=== PATIENT | male | born 1960 | race Caucasian/White ===

== ENCOUNTER 2021-09-27 23:08 | Inpatient (IN) ==
[2021-09-28] MEDS ORDERED: Iopamidol - 370 500 ML MLS IVP ONE ×2 (01:32→03:11)
[2021-09-28] MEDS ORDERED: *HR* HYDROmorphone (PF) 1 MG/ML SYRINGE IVP ONE (01:33)
[2021-09-28] MEDS ORDERED: Ipratropium/Albuterol Neb 3 ML IH ONE (01:34)
[2021-09-28] MEDS ORDERED: Ondansetron 4 MG/2 ML VIAL IVP ONE (01:34)
[2021-09-28 02:16] LABS: Bacteria,Urine Few per hpf (None-Few); Bilirubin,Urine Negative (Negative); Blood,Urine Large (Negative); Clarity,Urine Clear (Clear); Color,Urine Light-Orange (Yellow); Glucose,Urine (UA) Normal (Normal); Ketones,Urine Negative (Negative); Leukocyte Esterase,Urine Large (Negative); Mucus,Urine Few per lpf (None-Few); Nitrite,Urine Negative (Negative); Protein,Urine 50 mg/dL (Neg-Trace); Specific Gravity,Urine 1.022 (1.010-1.025); Squamous Epithelial Cell,Urine Few per hpf (None-Few); Urobilinogen,Urine Normal (Normal); WBC,Urine 50-100 per hpf (0-3)
[2021-09-28 02:28] LABS: Basophils % 0.1 %; Eosinophils % 0.2 %; Hematocrit 45.1 % (37.5-50.1); Hemoglobin 15.3 g/dL (12.9-16.9); Immature Granulocytes % 0.2 % (0-4); Lymphocytes % 9.9 %; Mean Corpuscular HGB Conc 33.9 g/dL (31.6-35.5); Mean Corpuscular Hemoglobin 31.5 pg (28.0-33.3); Mean Corpuscular Volume 92.8 fL (83.0-100.0); Mean Platelet Volume 10.8 fL (9.4-12.4); Monocytes # 0.7 K/mcL (0.0-1.3); Monocytes % 6.7 %; Neutrophils # 8.4 K/mcL (1.6-8.9); Platelet Count 119 K/mcL (140-400); Red Blood Count 4.86 M/mcL (4.19-5.50); Red Cell Distribution Width 14.7 % (11.5-14.5); Segmented Neutrophils % 82.9 %; White Blood Count 10.1 K/mcL (4.3-11.1)
[2021-09-28 02:36] LABS: INR 1.1; Prothrombin Time 12.1 Seconds (9.4-12.1)
[2021-09-28 02:39] LABS: Activated Partial Thrombo Time 31.1 Seconds (26.0-36.0)
[2021-09-28] MEDS ORDERED: Morphine Sulfate 2 MG/ML SYRINGE IVP ONE (02:41)
[2021-09-28 02:58] LABS: Albumin 4.4 g/dL (3.5-5.7); Albumin/Globulin Ratio 1.8 (1.1-2.2); Bilirubin,Direct 0.1 mg/dL (0.0-0.2); Bilirubin,Indirect 0.5 mg/dL (0.0-1.0); Bilirubin,Total 0.6 mg/dL (0.3-1.0); Calcium 8.7 mg/dL (8.6-10.3); Globulin 2.4 g/dL (2.4-3.5); Total Protein 6.8 g/dL (6.4-8.9); Troponin I 0.23 ng/mL (< 0.04)
[2021-09-28] MEDS ORDERED: levoFLOXacin 750 MG/150 ML 750 MG/150 ML BAG IVPB ONE (04:17)
[2021-09-28] MEDS ORDERED: *HR* OxyCODONE Immed Rel 5 MG TABLET PO ONE (04:24)
[2021-09-28] MEDS: DilTIAZem 50 MG/50 ML IV.SOLN IVC SCH ×4 (04:57→16:56)
[2021-09-28] MEDS ORDERED: Melatonin 3 MG TABLET PO PRN (05:30)
[2021-09-28] MEDS ORDERED: Naloxone 0.4 MG/ML INJ IVP PRN (05:30)
[2021-09-28] MEDS ORDERED: Ondansetron ODT 4 MG TAB.RAPDIS SL PRN (05:30)
[2021-09-28] MEDS ORDERED: *HR* Promethazine 25 MG/ML VIAL IM ONE (06:29)
[2021-09-28] MEDS: Ringers Solution, Lactated 1,000 ML IVC SCH (07:02)
[2021-09-28] MEDS: Piperacillin/Tazobactam 3.375 GM in 0.9 % Sodium Chloride Mini Bag 100 ML IVPB SCH ×3 (10:23→23:26)
[2021-09-28 12:27] LABS: Hematocrit 45.8 % (37.5-50.1); Hemoglobin 15.9 g/dL (12.9-16.9)
[2021-09-28] MEDS ORDERED: *HR* Promethazine 25 MG/ML VIAL IM PRN (12:30)
[2021-09-28] MEDS ORDERED: Morphine Sulfate 2 MG/ML SYRINGE IVP PRN (16:20)
[2021-09-28] MEDS: Ondansetron 4 MG/2 ML VIAL IVP PRN (16:28)
[2021-09-28] MEDS: Baclofen 10 MG TABLET PO SCH (20:45)
[2021-09-28] MEDS: traZODone 50 MG TABLET PO SCH (20:45)
[2021-09-29] MEDS: DilTIAZem 50 MG/50 ML IV.SOLN IVC SCH ×2 (01:02→10:50)
[2021-09-29] MEDS: Ringers Solution, Lactated 1,000 ML IVC SCH (02:54)
[2021-09-29 03:22] LABS: Basophils % 0.1 %; Hematocrit 46.5 % (37.5-50.1); Immature Granulocytes % 0.5 % (0-4); Lymphocytes # 1.6 K/mcL (0.6-4.6); Lymphocytes % 10.9 %; Mean Corpuscular HGB Conc 34.4 g/dL (31.6-35.5); Mean Corpuscular Hemoglobin 31.1 pg (28.0-33.3); Mean Corpuscular Volume 90.5 fL (83.0-100.0); Mean Platelet Volume 10.4 fL (9.4-12.4); Monocytes # 1.3 K/mcL (0.0-1.3); Monocytes % 8.6 %; Neutrophils # 11.7 K/mcL (1.6-8.9); Platelet Count 106 K/mcL (140-400); Red Blood Count 5.14 M/mcL (4.19-5.50); Red Cell Distribution Width 14.5 % (11.5-14.5); Segmented Neutrophils % 79.9 %; White Blood Count 14.7 K/mcL (4.3-11.1)
[2021-09-29 03:34] LABS: INR 1.3; Prothrombin Time 14.7 Seconds (9.4-12.1)
[2021-09-29 03:37] LABS: Activated Partial Thrombo Time 31.2 Seconds (26.0-36.0)
[2021-09-29 03:45] LABS: BUN/Creatinine Ratio 20 (6-26); Blood Urea Nitrogen 17 mg/dL (8-23); Calcium 8.4 mg/dL (8.6-10.3); Carbon Dioxide 21 mEq/L (23-29); Chloride 102 mEq/L (98-107); Glucose 90 mg/dL (70-105); Osmolality,Calculated 279 (280-300); Potassium 3.8 mEq/L (3.5-5.1); Sodium 134 mEq/L (136-145)
[2021-09-29] MEDS ORDERED: levoFLOXacin 750 MG/150 ML 750 MG/150 ML BAG IVPB SCH (06:00)
[2021-09-29] MEDS: Baclofen 10 MG TABLET PO SCH ×3 (08:10→21:05)
[2021-09-29] MEDS: Piperacillin/Tazobactam 3.375 GM in 0.9 % Sodium Chloride Mini Bag 100 ML IVPB SCH ×3 (08:22→23:11)
[2021-09-29] MEDS ORDERED: Iopamidol - 370 500 ML MLS IVP ONE (08:45)
[2021-09-29] MEDS: Ipratropium/Albuterol Neb 3 ML IH SCH ×5 (09:06→23:42)
[2021-09-29 09:10] LABS: Estimated Average Glucose 126 mg/dl
[2021-09-29] MEDS ORDERED: Nitroglycerin 0.4 MG TAB.SUBL SL PRN (11:09)
[2021-09-29] MEDS ORDERED: Aspirin Enteric Coated 81 MG Tablet PO SCH (11:15)
[2021-09-29] MEDS: Gabapentin 400 MG CAPSULE PO SCH ×2 (14:42→21:05)
[2021-09-29] MEDS: Acetaminophen 325 MG TABLET PO PRN (19:10)
[2021-09-29] MEDS: traZODone 50 MG TABLET PO SCH (21:05)
[2021-09-29] MEDS: Latanoprost 2.5 ML BOTTLE LEFT EYE SCH (21:08)
[2021-09-30] MEDS: Ipratropium/Albuterol Neb 3 ML IH SCH ×2 (04:03→07:39)
[2021-09-30 06:20] LABS: Hemoglobin 15.9 g/dL (12.9-16.9); Mean Corpuscular HGB Conc 34.6 g/dL (31.6-35.5); Mean Corpuscular Hemoglobin 31.1 pg (28.0-33.3); Mean Corpuscular Volume 89.8 fL (83.0-100.0); Mean Platelet Volume 10.8 fL (9.4-12.4); Platelet Count 135 K/mcL (140-400); Red Blood Count 5.12 M/mcL (4.19-5.50); Red Cell Distribution Width 14.3 % (11.5-14.5); White Blood Count 11.9 K/mcL (4.3-11.1)
[2021-09-30 06:29] LABS: BUN/Creatinine Ratio 16 (6-26); Blood Urea Nitrogen 14 mg/dL (8-23); Calcium 8.9 mg/dL (8.6-10.3); Carbon Dioxide 25 mEq/L (23-29); Chloride 104 mEq/L (98-107); Glucose 101 mg/dL (70-105); Osmolality,Calculated 285 (280-300); Potassium 3.5 mEq/L (3.5-5.1); Sodium 137 mEq/L (136-145)
[2021-09-30] MEDS ORDERED: polyethylene glycoL 3350 17 GM POWD.PACK PO PRN (09:38)
[2021-09-30] MEDS: Baclofen 10 MG TABLET PO SCH ×3 (09:48→20:32)
[2021-09-30] MEDS: cefTRIAXone 1,000 MG in Water for inj. (sterile) 10 ML IVP SCH (09:48)
[2021-09-30] MEDS: Gabapentin 400 MG CAPSULE PO SCH ×3 (09:49→20:32)
[2021-09-30] MEDS: lisinopriL 5 MG TABLET PO SCH (09:49)
[2021-09-30 09:56] LABS: Magnesium 1.8 mg/dL (1.6-2.6); Phosphorous 1.8 mg/dL (2.7-4.5)
[2021-09-30] MEDS: Ondansetron 4 MG/2 ML VIAL IVP PRN (10:05)
[2021-09-30] MEDS: Acetaminophen 325 MG TABLET PO PRN (10:05)
[2021-09-30] MEDS ORDERED: Ipratropium/Albuterol Neb 3 ML IH PRN (10:18)
[2021-09-30] MEDS: traZODone 50 MG TABLET PO SCH (20:32)
[2021-09-30] MEDS: Latanoprost 2.5 ML BOTTLE LEFT EYE SCH (20:33)
[2021-09-30] MEDS: Apixaban 5 MG TABLET PO SCH (20:33)
[2021-10-01 03:13] LABS: Hematocrit 45.7 % (37.5-50.1); Hemoglobin 16.1 g/dL (12.9-16.9); Mean Corpuscular HGB Conc 35.2 g/dL (31.6-35.5); Mean Corpuscular Hemoglobin 31.4 pg (28.0-33.3); Mean Corpuscular Volume 89.1 fL (83.0-100.0); Mean Platelet Volume 10.4 fL (9.4-12.4); Platelet Count 180 K/mcL (140-400); Red Blood Count 5.13 M/mcL (4.19-5.50); Red Cell Distribution Width 14.4 % (11.5-14.5); White Blood Count 9.3 K/mcL (4.3-11.1)
[2021-10-01 03:34] LABS: BUN/Creatinine Ratio 18 (6-26); Blood Urea Nitrogen 15 mg/dL (8-23); Calcium 9.1 mg/dL (8.6-10.3); Carbon Dioxide 24 mEq/L (23-29); Chloride 106 mEq/L (98-107); Glucose 93 mg/dL (70-105); Osmolality,Calculated 289 (280-300); Potassium 3.7 mEq/L (3.5-5.1); Sodium 139 mEq/L (136-145)
[2021-10-01] MEDS: Apixaban 5 MG TABLET PO SCH (09:31)
[2021-10-01] MEDS: Baclofen 10 MG TABLET PO SCH (09:31)
[2021-10-01] MEDS: Gabapentin 400 MG CAPSULE PO SCH (09:31)
[2021-10-01] MEDS: cefTRIAXone 1,000 MG in Water for inj. (sterile) 10 ML IVP SCH (09:32)
[2021-10-01] MEDS: lisinopriL 5 MG TABLET PO SCH (09:32)
[2021-10-01 10:16] VITALS: O2SAT 94
[2021-10-01] MEDS: Ondansetron 4 MG/2 ML VIAL IVP PRN (10:25)
[2021-10-01 11:53] VITALS: BP 117/78; PULSE 84; TEMP 98.3
== END 2021-10-01 12:42 | disposition home or self-care (01) | DRG 720 ==
LOC: EMEROOARM 23:08 → 2NENU 23:08 → SUATTDRO 09-28 05:29 → 2NENU 09-28 07:09
PROVIDERS: ADMIT Student in an Organized Health Care Education/Training Program; ATTEND Internal Medicine